=== PATIENT | female | born 1980 | race Caucasian/White ===

== ENCOUNTER 2022-03-30 13:36 | Day surgery (SDC) | payer BC ==
[2022-03-30] MEDS ORDERED: LIDOCAINE HCL 2% 100 MG/5 ML IJ ONE (13:37)
[2022-03-30] MEDS ORDERED: DIPRIVAN 200 MG/20 ML IV ONE (15:18)
--- NOTE | 2022-03-30 16:40 | XRAY ---
Indication: Left C2-C4 MBB. Intraoperative fluoroscopy provided for 19 seconds. 2 digital spot images submitted for interpretation demonstrates posterior needle tips projecting over the expected left C2-C4 nerve roots. Correlate with intraoperative findings/report.
--- NOTE | 2022-03-30 16:42 | XRAY ---
19 seconds of fluoroscopy was used in surgery for a left C2-C4 MBB.
[2022-03-30] MEDS ORDERED: Lactated Ringers 1,000 ML IV ONE (16:49)
== END 2022-03-30 15:50 | disposition home or self-care (01) ==
LOC: SDC-PAIN 13:36
PROVIDERS: ATTEND Psychiatry & Neurology Pain Medicine
DX: M47.812 Spondylosis without myelopathy or radiculopathy, cervical region (principal); Z79.899 Other long term (current) drug therapy
CPT/HCPCS: 64490; 64491; 72040; 77002; J2704